=== PATIENT | male | born 1975 | race Caucasian/White ===

== ENCOUNTER 2022-02-26 17:36 | Emergency (ER) | payer OTHER, SELFPAY ==
--- NOTE | 2022-02-26 17:39 | ED.LOWEXIN ---
HPI - Extremity Injury (Lower) General Chief Complaint: Extremity Problem,Nontraumatic Stated Complaint: Left Foot Pain Time Seen by Provider: 02/26/22 17:39 Source: patient and RN notes reviewed History of Present Illness HPI Narrative: Patient is a 46-year-old male who presents the urgent care with complaints of left great toe/foot pain and swelling. Patient states that it started on and he has been taking ibuprofen and increasing his water intake. Patient states he believes it is gout however he has had no history of gout. Patient denies of any injury to the foot. No other acute complaints. No acute distress noted. Patient aware of the plan of care. Some parts of this dictation were generated by voice recognition software and may contain typographical and/or grammatical inaccuracies. Related Data Allergies Allergy/AdvReac Type Severity Reaction Status Date / Time No Known Allergies Allergy Verified 02/26/22 17:53 Review of Systems Review of Systems: CONSTITUTIONAL: Denies fever, chills, or sweats. EYES: Denies visual changes, redness, or discharge. ENT: Denies rhinorrhea, congestion, sore throat, or otalgia. CARDIOVASCULAR: Denies chest pain, palpitations, or edema. RESPIRATORY: Denies cough or dyspnea. GASTROINTESTINAL: Denies abdominal pain, nausea, vomiting, or diarrhea. GENITOURINARY: Denies dysuria or hematuria. SKIN: Denies rash or itching. MUSCULOSKELETAL: Reports of left great toe/foot pain NEUROLOGIC: Denies headache, numbness, or weakness. All other systems reviewed are negative, except as documented in HPI. PMFSH Comments At the time of my signature, I reviewed and agree with the nursing past medical, surgical, social, and family history. There is no relevant family history pertinent to the patient complaint. Exam Narrative: GENERAL: This is a well-nourished, well-developed patient, in no apparent distress. HEAD: normocephalic, atraumatic. EYES: PERRL. Sclera clear/white. Vision is grossly intact. EARS: External ears normal NOSE: External nose normal with no obvious nasal discharge, nares without redness, no rhinorrhea. THROAT: Mucous membranes moist NECK: Neck supple, non-tender without lymphadenopathy, masses or thyromegaly. CARDIOVASCULAR: Regular rate and rhythm without murmurs, gallops, or rubs. RESPIRATORY: Clear to auscultation. Breath sounds equal bilaterally. No wheezes, rales, or rhonchi. SKIN: warm, intact with no suspicious lesions or rash, good texture and turgor. NEURO: awake, alert, and oriented to person, place and time. There were no obvious focal neurologic abnormalities. EXTREMITIES: Moderate edema/erythema and tenderness to the MCP of the left great toe. Symptoms consistent with gout. Positive strong left pedal pulse with capillary refill less than 2 seconds Course Course Level of Care: Express Care Visit Vital Signs Vital signs: Vital Signs Temperature 98.7 F 02/26/22 17:47 Pulse Rate 95 02/26/22 17:47 Respiratory Rate 16 02/26/22 17:47 Blood Pressure 152/95 H 02/26/22 17:47 Pulse Oximetry 98 02/26/22 17:47 Temperature 98.7 F 02/26/22 17:47 Pulse Rate 95 02/26/22 17:47 Respiratory Rate 16 02/26/22 17:47 Blood Pressure 152/95 H 02/26/22 17:47 Pulse Oximetry 98 02/26/22 17:47 Reviewed-patient is informed that they may have pre-hypertension or hypertension based on a blood pressure reading in the department. I recommend the patient call the primary care provider listed on their discharge instructions or a physician of their choice this week to arrange follow-up for further evaluation of possible pre-hypertension or hypertension. MDM - Extremity Injury (Lower) MDM Narrative Medical decision making narrative: Advised the patient to start the steroid taper tomorrow morning. Make sure to complete it in its entirety. Be sure to eat and drink with the medication. Follow the recommended diet for gout, provided in your packet. Keep the foot elev
[2022-02-26 17:47] VITALS: BP 152/95; PULSE 95; RESP 16; TEMP 37.1; O2SAT 98
[2022-02-26] MEDS: predniSONE 20 MG TABLET 60 MG PO (18:04)
== END 2022-02-26 18:20 | disposition home or self-care (01) ==
PROVIDERS: Emergency Provider Nurse Practitioner Family
DX: M10.9 Gout, unspecified (principal)
CPT/HCPCS: 99213; G0463; J7512